=== PATIENT | female | born 1950 | race Caucasian/White ===

== ENCOUNTER 2018-07-13 00:12 | Observation (INO) ==
[2018-07-13] MEDS ORDERED: Naloxone 0.4 MG/ML INJ IVP PRN (03:50)
[2018-07-13] MEDS ORDERED: 0.9 % Sodium Chloride 1,000 ML IVC SCH (04:00)
--- NOTE | 2018-07-13 04:26 | Internal Med History&Physical ---
Date of Encounter: 07/13/18 Time of Encounter: 03:30 Internal Medicine - H&P: HPI Chief complaint: Abdominal Pain Admitted From: Home Plans for Post Hospital Care: Home History of present illness: Ms. Roa is a 68 year old female with past medical history significant for hypertension and ulcerative colitis who presents as hospital transfer from [facility] where she presented for complaints of abdominal pain. Sending ER obtained CT of abdomen/pelvis that showed small bowel obstruction with a transition point within the pelvis. Sending ER also reported EKG as sinus rhythm with no acute changes. Patient reports having frequent formed bowel movements, abdominal pain, nausea, and vomiting over last couple days that she describes as being consistent with what she typically experiences with her ulcerative colitis symptoms. However starting yesterday her frequent bowel movements subsided and she developed worsening abdominal pain. She describes the pain as intermittent cramping/aching rated at 6/10 at its worst. Pain is worsened with PO intake and she denies any alleviating factors. Last oral intake was last night. Currently denies any headache, chills, chest pain, shortness of breath, cough, or bladder changes. Received liter bolus and maintenance IV fluids at sending ER. 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 Sending ER also attempted to place an NG tube several times without success, and patient subsequently denied further attempts and continues to refuse placement attempts at this time. Follows regularly with PCP every 6 months and was last seen last month. Past Med Surg Social Fam HX - Past Medical History Medical history: hypertension, other Additional medical history: ulcerative colitsis Psychiatric history: no psych history - Past Surgical History Additional surgical history: back surg. shoulder. carpal tunnel. breast - Social History Smoking Status: Never smoker Smokeless Tobacco Status: No Alcohol use: none Drug use: none Internal Medicine - H&P: Meds hydroCHLOROthiazide [Hydrochlorothiazide] 25 mg PO DAILY 04/12/15 [History] Sulfasalazine [Azulfidine] 500 mg PO BID 08/01/15 [History] Verapamil [Isoptin] 120 mg PO DAILY 08/01/15 [History] Cholecalciferol (Vitamin D3) [Vitamin D] 50,000 unit PO DAILY 07/12/18 [History] Allergy/AdvReac Type Severity Reaction Status Date / Time codeine AdvReac Swelling Verified 07/12/18 22:20 of Lip/Tongue/Throat All Systems PM: A 10-system review of systems was performed and is negative for pertinent findings except as documented above in the HPI. - Constitutional Vitals: Temp Pulse Resp BP Pulse Ox 98.0 F 92 15 151/73 97 07/13/18 03:08 07/13/18 03:08 07/13/18 03:08 07/13/18 03:08 07/13/18 03:08 Exam: General: Alert and oriented. Skin:Normal color, no rash, no lesions. HEENT:Pupils equal, round and reactive. Cardiovascular:Normal S1 & S2, no rubs, murmurs or gallops. No JVD. Pulse regular. Lungs:Normal breath sounds, no wheezes or crackles. Abdomen:Soft, tender to palpation across upper quadrant, no rigidity, bowel so unds hypoactive. Extremities:No deformity, no edema or tenderness, no joint swelling or clubbing. Neurological:Normal cognition and motor skills. Pulses:Carotid and radial pulses normal +2. Rest of the physical exam is non contributory. - Assessment and Plan (1) SBO (small bowel obstruction) Current Visit: No Status: Acute Assessment and plan: Refusing nasogastric tube. Liter bolus received at sending ER. MIVF ordered. Surgery consult ordered, will call later this a.m. Refusing PRN pain medication. (2) Abdominal pain Current Visit: Yes Status: Acute Assessment and plan: Likely secondary to small bowel obstruction. Plan as above. Qualifiers: Abdominal location: unspecified location Qualified Code(s): R10.9 - Unspeci fied abdominal pain (3) Increased white blood cell count Current Visit: Yes Status: Acute Assessment and plan: Slightly elevated. Blood cultures and repeat labs ordered. UA at sending ER negative. Will start antibiotics if any signs of infection. Qualifiers: Leukocytosis type: unspecified Qualified Code(s): D72.829 - Elevated white blood cell count, unspecified (4) Decreased potassium in the blood Current Visit: Yes Status: Acute Assessment and plan: Slightly decreased. Repeat labs ordered. Will replace if needed. - Time Spent With Patient Total time spent is greater than 50% in coordination of care (as documented) at patient's floor/unit and/or counseling patient:
[2018-07-13 06:59] LABS: Basophils % 0.2 %; Hematocrit 45.4 % (35.3-44.9); Hemoglobin 14.5 g/dL (11.5-15.4); Immature Granulocytes % 0.3 % (0-4); Lymphocytes # 3.1 K/mcL (0.6-4.6); Lymphocytes % 23.6 %; Mean Corpuscular HGB Conc 31.9 g/dL (31.6-35.5); Mean Corpuscular Hemoglobin 30.1 pg (28.0-33.3); Mean Corpuscular Volume 94.2 fL (83.0-100.0); Mean Platelet Volume 10.5 fL (9.4-12.4); Monocytes # 0.3 K/mcL (0.0-1.3); Monocytes % 2.1 %; Neutrophils # 9.6 K/mcL (1.6-8.9); Platelet Count 206 K/mcL (140-400); Red Blood Count 4.82 M/mcL (3.82-4.97); Red Cell Distribution Width 13.2 % (11.5-14.5); Segmented Neutrophils % 73.8 %
[2018-07-13 07:20] LABS: Alanine Aminotransferase 16 Units/L (7-52); Albumin 4.6 g/dL (3.5-5.7); Albumin/Globulin Ratio 2.1 (1.1-2.2); Alkaline Phosphatase 66 Units/L (34-104); Aspartate Amino Transferase 19 Units/L (13-39); BUN/Creatinine Ratio 30 (6-26); Bilirubin,Total 0.6 mg/dL (0.3-1.0); Blood Urea Nitrogen 18 mg/dL (8-23); Calcium 9.5 mg/dL (8.6-10.3); Carbon Dioxide 28 mEq/L (23-29); Chloride 103 mEq/L (98-107); Globulin 2.2 g/dL (2.4-3.5); Glucose 139 mg/dL (70-105); Osmolality,Calculated 294 (280-300); Potassium 4.1 mEq/L (3.5-5.1); Sodium 140 mEq/L (136-145); Total Protein 6.8 g/dL (6.4-8.9); eGFR For Non-African Americans > 60 (> 60)
--- NOTE | 2018-07-13 08:39 | Event Note ---
<Susan Mensah N - Last Filed: 07/13/18 14:33> Date of Encounter: 07/13/18 Time of Encounter: 08:38 INTERVAL HISTORY Ms. Roa is a 68-year old female with a history of hypertension and ulcerative colitis who presented to outside ED for evaluation of worsening abdominal pain, nausea, and vomiting. CT performed at that facility was concerning for SBO, prompting transfer to [facility] for further management. Attempts were made for NG tube placement prior to transfer; however, this was unsuccessf ul after multiple tries, and patient ultimately refused further attempts. On examination this morning, patient reported that she had vomited a few hours prior, which resulted in resolution of her symptoms. She denies any ongoing pain or nausea. She denies fevers, chills, or other complaints at this time. PHYSICAL EXAM GENERAL: Well-developed, well-nourished adult female resting in bed comfortably and in no acute distress. HEENT: Atraumatic and normocephalic. CARDIOVASCULAR: Regular rate and rhythm. S1 and S2 present. No murmurs, gallops, or rubs. RESPIRATORY: Clear to auscultation bilaterally. Chest rises and falls symmetrically with respiration. No accessory muscle use noted. GASTROINTESTINAL: Abdomen is soft, nontender, nondistended. Bowel sounds present . EXTREMITIES: No clubbing, cyanosis, or edema present. SKIN: Warm, dry, and intact. NEUROLOGIC: Alert and oriented x3. Patient is cooperative with exam and answers questions appropriately. No apparent focal deficits present. PSYCHIATRIC: Mood and affect appear appropriate. ASSESSMENT AND PLAN (1) Small bowel obstruction Suspected based on CT imaging, which demonstrated SBO with transition point within the pelvis. On physical exam, abdomen is soft and nontender, with bowel sounds present x4 quadrants. Small bowel follow-through study ordered by surgery team demonstrated no evidence of obstruction. Plan: - Continue NPO diet awaiting further surgery recommendations. If cleared by surgery, anticipate starting clear liquid diet later today with advancement as tolerated. (2) Abdominal pain Likely secondary to SBO vs. ulcerative colitis flare. Plan as above. (3) Leukocytosis Suspect secondary to repeated emesis vs. inflammatory response. Low suspicion for acute infectious process. - Repeat and trend CBC. - Blood and urine culture pending. - No antibiotic therapy indicated at this time. Will continue to monitor for signs of acute infection. (4) History of ulcerative colitis - Anticipate continuing home medication of sulfasalazine 500mg PO BID once bowel obstruction has been ruled out and patient is able to tolerate oral intake. (5) Hypertension - Will continue home medications of hydrochlorothiazide 25mg and verapamil 120mg once patient can tolerate PO intake. (6) DVT prophylaxis - Heparin 5000units Q12H SQ. <Jas Chen - Last Filed: 07/13/18 16:29> Date of Encounter: 07/13/18 Ms Roa was admitted earlier today with presumed acute SBO. She has been seen by surgery and to have a small bowel follow through. Agree with assessment and plan as above and in H&P
--- NOTE | 2018-07-13 10:18 | AcuteCare Surgery Consult Note ---
<Eduardo Su - Last Filed: 07/13/18 17:54> Date of Encounter: 07/13/18 Time of Encounter: 10:14 Assessment and Plan (1) SBO (small bowel obstruction) Current Visit: Yes Status: Acute This 68-year-old female with past medical history significant for ulcerative colitis and hypertension who presents with nausea, vomiting, abdominal pain for the past 2-3 days. - Pain exacerbated rated by by mouth intake. - Patient had 1 episode of nonbloody, non-bilious vomiting 2 hours ago, after which abdominal pain, nausea has subsided; currently reports no acute complaints - Patient is nontender and nondistended on exam - Patient has slightly elevated white count but it lab work is otherwise benign - CT abdomen and pelvis notable for small bowel obstruction with transition point within the pelvis - Patient has history of ulcerative colitis, but has not had a colonoscopy for many years; currently managed medically by her PCP PLAN: Patient has history and imaging suggestive of small bowel obstruction. However patient is passing gas and is in no acute distress at this time. Exam was benign. Patient is nontender - We will keep patient nothing by mouth for now - We will obtain a small bowel follow-through to further evaluate for small bowel traction - Monitor for worsening leukocytosis or fevers; monitor for abdominal pain, nausea, vomiting - NG tube was attempted in the ER without success; patient is refusing NG tube at this time - IV fluids - IV pain and nausea control - Otherwise medical management per primary team (2) Ulcerative colitis Current Visit: Yes Status: Acute Patient notes history of ulcerative colitis diagnosed approximately 25 years ago - Medically managed by her primary care physician - States she has not had colonoscopy for many years PLAN: - Recommend outpatient colonoscopy after discharge Qualifiers: Ulcerative colitis location: unspecified ulcerative colitis location Di gestive disease complication type: without complication Qualified Code(s): K51.90 - Ulcerative colitis, unspecified, without complications History of Present Illness Consult date: 07/13/18 Reason for consult: abdominal pain Requesting physician: Camron Chow History of present illness: This is a 68-year-old female with past medical history significant for hypertension nausea and ulcerative colitis who presented to the hospital from [facility] emergency room with abdominal pain. Patient was sent from [facility] ER due to CT of the abdomen and pelvis which showed small bowel obstruction with a transition point within the pelvis. Patient noted that she has been having abdominal pain, nausea, vomiting over the course of the past few days. States this is not abnormal for her as she has a history of ulcerative colitis. Pain has been described as intermittent, crampy in rated 6/10 at its worst. Pain is worsened with eating. Patient has passed gas, but denies any recent bowel movements. At the time of my exam, she reports that her symptoms have improved. She did have 1 episode of nonbloody, nonbilious vomiting last night, but afterwards she has not had any abdominal pain, nausea, or further vomiting. She denies any hematemesis, melena, hematochezia. She denies dysuria, hematuria. She otherwise denies fevers/chills, headaches, lightheadedness, dizziness, chest pain, palpitations, difficulty breathing, wheezing, fatigue, weakness, malaise. NG tube was attempted to be placed in previous ER without success. Because of the patient has refused NG tube since she has arrived. Past Med Surg Social Fam HX - Past Medical History Attestation: Yes The following information was validated with the patient. Source: patient, old records reviewed Medical history: hypertension, other Additional medical history: ulcerative colitsis Psychiatric history: no psych history - Past Surgical History Additional surgical history: back surg. shoulder. carpal tunnel. breast - Social History Smoking Status: Never smoker Smokeless Tobacco Status: No Alcohol use: none Drug use: none Medications and Allergies RX: hydroCHLOROthiazide [Hydrochlorothiazide] 25 mg PO DAILY 04/12/15 [History] RX: Sulfasalazine [Azulfidine] 500 mg PO BID 08/01/15 [History] RX: Verapamil [Isoptin] 120 mg PO DAILY 08/01/15 [History] RX: Cholecalciferol (Vitamin D3) [Vitamin D3] 50,000 unit PO FR 07/12/18 [History] RX: Ascorbate Calcium [Vitamin C] 500 mg PO BID 07/13/18 [History] Allergy/AdvReac Type Severity Reaction Status Date / Time codeine AdvReac Swelling Verified 07/13/18 08:24 of Lip/Tongue/Throat Review of Systems All systems PM: reviewed and no additional remarkable complaints except as stated All systems PM: The remainder of the systems were reviewed and are negative - Constitutional no chills, no fatigue, no headache(s), no lethargy, no malaise - EENT Nose, mouth and throat: no dysphagia, no nasal congestion - Cardiovascular no chest pain, no chest pain at rest, no chest pain with activity, no dyspnea, no dyspnea on exertion, no irregular heart rhythm, no radiating jaw, neck or arm pain, no lightheadedness, no palpitations - Respiratory no cough, no dyspnea - Gastrointestinal bloating, no abdominal pain, no cramping, no diarrhea, no hematemesis, no loose stools, no melena, no nausea, no vomiting - Genitourinary Genitourinary: no dysuria, no hematuria - Neurological no dizziness, no headache(s) General Surgery Exam Initial Vital Signs Temp Pulse Resp BP Pulse Ox 98.4 F 79 16 154/75 92 07/13/18 01:37 07/13/18 01:37 07/13/18 01:37 07/13/18 01:37 07/13/18 01:37 - General physical appearance well developed, well nourished, no distress - Eyes PERRL - Respiratory normal expansion, normal respiratory effort, clear to auscultation - Cardiovascular Cardiovascular exam: Present: RRR, regular rhythm, no murmurs/rubs/gallops - Abdomen Abdomen general surgery: Present: bowel sounds present, soft, non tender - Psychiatric Psychiatric general surgery: Present: A&Ox3, appropriate, oriented to person, oriented to place, oriented to time, speech is normal, memory intact Exam Initial Vital Signs Temp Pulse Resp BP Pulse Ox 98.4 F 79 16 154/75 92 07/13/18 01:37 07/13/18 01:37 07/13/18 01:37 07/13/18 01:37 07/13/18 01:37 Results - Labs 07/13/18 06:43 07/13/18 06:43 Abnormal lab results WBC 13.0 K/mcL (4.3-11.1) H 07/13/18 06:43 Hct 45.4 % (35.3-44.9) H 07/13/18 06:43 Neutrophils # 9.6 K/mcL (1.6-8.9) H 07/13/18 06:43 BUN/Creatinine Ratio 30 (6-26) H 07/13/18 06:43 Glucose 139 mg/dL (70-105) H 07/13/18 06:43 Globulin 2.2 g/dL (2.4-3.5) L 07/13/18 06:43 Diabetes panel 07/13/18 Range/Units 06:43 Sodium 140 (136-145) mEq/L Potassium 4.1 (3.5-5.1) mEq/L Chloride 103 (98-107) mEq/L Carbon Dioxide 28 (23-29) mEq/L BUN 18 (8-23) mg/dL Creatinine 0.61 (0.60-1.20) mg/dL Glucose 139 H (70-105) mg/dL Calcium 9.5 (8.6-10.3) mg/dL AST 19 (13-39) Units/L ALT 16 (7-52) Units/L Alkaline Phosphatase 66 (34-104) Units/L Albumin 4.6 (3.5-5.7) g/dL Calcium panel 07/13/18 Range/Units 06:43 Calcium 9.5 (8.6-10.3) mg/dL Albumin 4.6 (3.5-5.7) g/dL Pituitary panel 07/13/18 Range/Units 06:43 Sodium 140 (136-145) mEq/L Potassium 4.1 (3.5-5.1) mEq/L Chloride 103 (98-107) mEq/L Carbon Dioxide 28 (23-29) mEq/L BUN 18 (8-23) mg/dL Creatinine 0.61 (0.60-1.20) mg/dL Glucose 139 H (70-105) mg/dL Calcium 9.5 (8.6-10.3) mg/dL Adrenal panel 07/13/18 Range/Units 06:43 Sodium 140 (136-145) mEq/L Potassium 4.1 (3.5-5.1) mEq/L Chloride 103 (98-107) mEq/L Carbon Dioxide 28 (23-29) mEq/L BUN 18 (8-23) mg/dL Creatinine 0.61 (0.60-1.20) mg/dL Glucose 139 H (70-105) mg/dL Calcium 9.5 (8.6-10.3) mg/dL Total Bilirubin 0.6 (0.3-1.0) mg/dL AST 19 (13-39) Units/L ALT 16 (7-52) Units/L Alkaline Phosphatase 66 (34-104) Units/L Albumin 4.6 (3.5-5.7) g/dL All other labs normal. Consult Discharge Plan - Plan Additional Instructions: Follow-up with her PCP in 3-5 days for reevaluation. Continue taking her regular home medications. Advance your diet as tolerated. Return to the emergency department if you have abdominal pain, nausea, vomiting, fevers, chills, or if any new complaints or concerns arise. Referrals: Ayush Sanchez MD [Primary Care Provider] - <Jabier Almaguer - Last Filed: 07/13/18 18:47> Date of Encounter: 07/13/18 Review of Systems All systems PM: The remainder of the systems were reviewed and are negative General Surgery Exam Initial Vital Signs Temp Pulse Resp BP Pulse Ox 98.4 F 79 16 154/75 92 07/13/18 01:37 07/13/18 01:37 07/13/18 01:37 07/13/18 01:37 07/13/18 01:37 Exam Initial Vital Signs Temp Pulse Resp BP Pulse Ox 98.4 F 79 16 154/75 92 07/13/18 01:37 07/13/18 01:37 07/13/18 01:37 07/13/18 01:37 07/13/18 01:37 Results - Labs 07/13/18 06:43 07/13/18 06:43 Abnormal lab results WBC 13.0 K/mcL (4.3-11.1) H 07/13/18 06:43 Hct 45.4 % (35.3-44.9) H 07/13/18 06:43 Neutrophils # 9.6 K/mcL (1.6-8.9) H 07/13/18 06:43 BUN/Creatinine Ratio 30 (6-26) H 07/13/18 06:43 Glucose 139 mg/dL (70-105) H 07/13/18 06:43 Globulin 2.2 g/dL (2.4-3.5) L 07/13/18 06:43 Diabetes panel 07/13/18 Range/Units 06:43 Sodium 140 (136-145) mEq/L Potassium 4.1 (3.5-5.1) mEq/L Chloride 103 (98-107) mEq/L Carbon Dioxide 28 (23-29) mEq/L BUN 18 (8-23) mg/dL Creatinine 0.61 (0.60-1.20) mg/dL Glucose 139 H (70-105) mg/dL Calcium 9.5 (8.6-10.3) mg/dL AST 19 (13-39) Units/L ALT 16 (7-52) Units/L Alkaline Phosphatase 66 (34-104) Units/L Albumin 4.6 (3.5-5.7) g/dL Calcium panel 07/13/18 Range/Units 06:43 Calcium 9.5 (8.6-10.3) mg/dL Albumin 4.6 (3.5-5.7) g/dL Pituitary panel 07/13/18 Range/Units 06:43 Sodium 140 (136-145) mEq/L Potassium 4.1 (3.5-5.1) mEq/L Chloride 103 (98-107) mEq/L Carbon Dioxide 28 (23-29) mEq/L BUN 18 (8-23) mg/dL Creatinine 0.61 (0.60-1.20) mg/dL Glucose 139 H (70-105) mg/dL Calcium 9.5 (8.6-10.3) mg/dL Adrenal panel 07/13/18 Range/Units 06:43 Sodium 140 (136-145) mEq/L Potassium 4.1 (3.5-5.1) mEq/L Chloride 103 (98-107) mEq/L Carbon Dioxide 28 (23-29) mEq/L BUN 18 (8-23) mg/dL Creatinine 0.61 (0.60-1.20) mg/dL Glucose 139 H (70-105) mg/dL Calcium 9.5 (8.6-10.3) mg/dL Total Bilirubin 0.6 (0.3-1.0) mg/dL AST 19 (13-39) Units/L ALT 16 (7-52) Units/L Alkaline Phosphatase 66 (34-104) Units/L Albumin 4.6 (3.5-5.7) g/dL All other labs normal. - Attending Attestation I have personally seen and examined the patient. I have reviewed pertinent labs, imaging, progress notes, including this one. I have discussed the plan in thorough detail with the resident and nurse practitioner. I agree with the above assessment and plan and wish to add the following... SBFT ordered; no evidence of obstruction; okay to advance diet as tolerated can d/c per primary team
[2018-07-13] MEDS ORDERED: DIATRIZOATE MEGLUMINE, SODIUM 120 ML SOLUTION PO ONE (12:05)
[2018-07-13] MEDS ORDERED: *HR* Heparin 5,000 UNIT/ML VIAL SQ SCH (14:00)
[2018-07-13] MEDS: *HR* Heparin 5,000 UNIT/ML VIAL SQ SCH ×2 (14:18→17:52)
[2018-07-13 15:10] VITALS: BP 147/78
--- NOTE | 2018-07-13 18:21 | Discharge Summary ---
<Jas Chen - Last Filed: 07/13/18 18:22> Orders not resulted at time of discharge: Pending orders 07/13/18 06:43 Culture,Blood [BC] Routine 07/14/18 04:00 BMP [Basic Metabolic Panel] AM 0400 CBC [Complete Blood Count] [HEME] AM 0400 Date of Encounter: 07/13/18 - Discharge Diagnosis (1) SBO (small bowel obstruction) Priority: Primary Status: Acute (2) Abdominal pain Priority: Secondary Status: Acute Qualifiers: Abdominal location: generalized Qualified Code(s): R10.84 - Generalized abdominal pain (3) Increased white blood cell count Priority: Secondary Status: Acute Qualifiers: Leukocytosis type: unspecified Qualified Code(s): D72.829 - Elevated white blood cell count, unspecified (4) Decreased potassium in the blood Priority: Secondary Status: Acute Hospital course: Ms. Roa is a 68 year old female - Time Spent with Patient Total time spent providing and/or coordinating discharge services: 25min - Discharge Medications Prescriptions: Continue hydroCHLOROthiazide [Hydrochlorothiazide] 25 mg PO DAILY Ascorbate Calcium [Vitamin C] 500 mg PO BID Verapamil [Isoptin] 120 mg PO DAILY Sulfasalazine [Azulfidine] 500 mg PO BID Cholecalciferol (Vitamin D3) [Vitamin D3] 50,000 unit PO FR Home Medications: hydroCHLOROthiazide [Hydrochlorothiazide] 25 mg PO DAILY 04/12/15 [History] Sulfasalazine [Azulfidine] 500 mg PO BID 08/01/15 [History] Verapamil [Isoptin] 120 mg PO DAILY 08/01/15 [History] Cholecalciferol (Vitamin D3) [Vitamin D3] 50,000 unit PO FR 07/12/18 [History] Ascorbate Calcium [Vitamin C] 500 mg PO BID 07/13/18 [History] Allergies/Adverse Reactions: Allergy/AdvReac Type Severity Reaction Status Date / Time codeine AdvReac Swelling Verified 07/13/18 08:24 of Lip/Tongue/Throat Date of admission: 07/13/18 01:32 Primary care physician: Ayush Sanchez MD Consults: 07/13/18 03:54 Consult to Surgery [CONS] Routine Consulting Provider: Acute Care Surgery Reason for Consult: Transfer from [facility] for abdominal pain. Abdomen/Pelvis CT shows small bowel obstruction with a transition point within the pelvis. Call Completed: Yes - Constitutional Vitals: Temp Pulse Resp BP Pulse Ox 99.0 F 89 15 147/78 96 07/13/18 15:05 07/13/18 15:05 07/13/18 15:05 07/13/18 15:05 07/13/18 15:05 - Patient Status Disposition: Home, Self-Care Condition: Good - Discharge Instructions Follow Up With: Ayush Sanchez MD [Primary Care Provider] - Additional Instructions: Follow-up with her PCP in 3-5 days for reevaluation. Continue taking her regular home medications. Advance your diet as tolerated. Return to the emergency department if you have abdominal pain, nausea, vomiting, fevers, chills, or if any new complaints or concerns arise. - Attending Attestation I examined this patient and my medical decision-making was reviewed with the Resident Physician on 07/13/18. I agree with the documented findings, disposition and treatment plan as described except to the extent set forth below. Ms Roa has been hospitalized for possible SBO. She has improved and small bowel follow through is negative. She is tolerating diet and is afebrile. She is ready for discharge Exam Alert Comfortable Mucus membranes dry Heart not tachy No wheeze abd soft Plan D/C home today <Susan Mensah N - Last Filed: 07/13/18 18:35> - NOTES TO OUTPATIENT PROVIDER Notes to Outpatient Provider: Patient was admitted to the hospital due to concerns for small bowel obstruction. Small bowel follow through study was negative for acute obstruction, and patient was started on clear liquid diet, which she tolerated without issue. Patient is to follow-up with PCP for reevaluation in 3-5 days. Orders not resulted at time of discharge: Pending orders 07/13/18 06:43 Culture,Blood [BC] Routine 07/14/18 04:00 BMP [Basic Metabolic Panel] AM 0400 CBC [Complete Blood Count] [HEME] AM 0400 Date of Encounter: 07/13/18 Time of Encounter: 18:20 - Discharge Diagnosis (1) SBO (small bowel obstruction) Priority: Primary Status: Acute (2) Abdominal pain Priority: Secondary Status: Acute Qualifiers: Abdominal location: generalized Qualified Code(s): R10.84 - Generalized abdominal pain (3) Increased white blood cell count Priority: Secondary Status: Acute Qualifiers: Leukocytosis type: unspecified Qualified Code(s): D72.829 - Elevated white blood cell count, unspecified (4) Decreased potassium in the blood Priority: Secondary Status: Acute Hospital course: Ms. Roa is a 68 year old female with a history of hypertension and ulcerative colitis who presented to outside ED for evaluation of worsening abdo donovan pain, nausea, and vomiting. CT performed at that facility was concerning for SBO, prompting transfer to [facility] for further management. Attempts were made for NG tube placement prior to transfer; however, this was unsuccessful after multiple tries, and patient ultimately refused further attempts. On examination this morning, patient reported that she had vomited a few hours prior, which resulted in resolution of her symptoms. She denies any ongoing pain or nausea. She denies fevers, chills, or other complaints at this time. Small bowel follow through study was negative for acute obstruction. Patient was started on clear liquid diet, which she tolerated without complication. Patient reported feeling like she was at her baseline, as stated that she felt ready to leave the hospital. Patient was advised to advance her diet slowly as tolerated, and return to the emergency department she developed any recurrent symptoms. - Time Spent with Patient Total time spent providing and/or coordinating discharge services: Date of admission: 07/13/18 01:32 Primary care physician: Ayush Sanchez MD Consults: 07/13/18 03:54 Consult to Surgery [CONS] Routine Consulting Provider: Acute Care Surgery Reason for Consult: Transfer from [facility] ER for abdominal pain. Abdomen/Pelvis CT shows small bowel obstruction with a transition point within the pelvis. Call Completed: Yes Discharging clinician: Susan Mensah Anticipated date of discharge: 07/13/18 - Constitutional Vitals: Temp Pulse Resp BP Pulse Ox 99.0 F 89 15 147/78 96 07/13/18 15:05 07/13/18 15:05 07/13/18 15:05 07/13/18 15:05 07/13/18 15:05 Exam: GENERAL: Well-developed, well-nourished adult female resting in bed comfortably and in no acute distress. HEENT: Atraumatic and normocephalic. CARDIOVASCULAR: Regular rate and rhythm. S1 and S2 present. No murmurs, gallops, or rubs. RESPIRATORY: Clear to auscultation bilaterally. Chest rises and falls symmetrically with respiration. No accessory muscle use noted. GASTROINTESTINAL: Abdomen is soft, nontender, nondistended. Bowel sounds present. EXTREMITIES: No clubbing, cyanosis, or edema present. SKIN: Warm, dry, and intact. NEUROLOGIC: Alert and oriented x3. Patient is cooperative with exam and answers questions appropriately. No apparent focal deficits present. PSYCHIATRIC: Mood and affect appear appropriate. - Patient Status Functional capacity at discharge: independent ambulation Overall status at discharge: patient is progressing back to baseline - Diet and Activity Activity: increase activity as tolerated Diet: advance to your usual diet
== END 2018-07-13 18:59 | disposition home or self-care (01) ==
LOC: 3ANU → SUATTDRO 01:32
PROVIDERS: ADMIT Family Medicine; ATTEND Internal Medicine